=== PATIENT | female | born 2005 | race Caucasian/White ===

== ENCOUNTER 2025-02-26 16:19 | Outpatient (AMB) | payer OTHER, SELFPAY ==
--- NOTE | 2025-02-26 16:20 | A.OFFPC_ITS ---
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 Accompanied by: Self / Same As Patient Allergies No Known Allergies Allergy (Verified 02/26/25 16:21) Medication List - Last Reconciled 02/26/25 by Pierre Landin MD No Known Home Meds Tobacco use date assessed: 02/26/25 Dental Screening Dental Screen Date: 02/26/25 Did you have a dental visit in the last 12 months?: Yes Did you have a dental problem in the last 6 months where you did not have access to dental care?: No Was dental information given to patient?: Patient has dentist HPI HPI Comments History of Present Illness Details History of Present Illness The patient is a 19-year-old female presenting with concerns about hormonal issues, including hair loss, excessive hair growth, menstrual irregularities, and difficulty losing weight. Polycystic Ovarian Syndrome (PCOS): - The patient reports symptoms consisten t with PCOS, including hirsutism, menstrual irregularities, and difficulty losing weight. - The symptoms have been ongoing, with r ecent exacerbation of facial hair growth and irregular menstrual cycles. - There is no known family history of PC OS. Hirsutism: - The patient reports excessive hair hayley wth on the neck and chin, which has worsened over the past 3-1/2 weeks. - This is a new development, as she has always had a mole with a hair on it but not the current extent of hair growth. Menstrual irregularities: - The patient describes her menstrual cy cles as irregular, with varying cycle lengths and a missed period in January. - She has experienced these irregulariti es for an extended period. Obesity: - The patient's BMI is 34.9, indicating class 1 obesity. - She has been actively trying to lose w eight through diet and exercise since May, with limited success. Alopecia: - The patient reports significant hair l oss, which she initially thought was normal but has recently worsened. - She provided photographic evidence of the hair loss. Hip pain: - The patient experiences right hip pain when sitting cross-legged for extended periods. - The pain is described as aching and oc curs after about 20 minutes in this position. Health Maintenance - Encouraged to engage in at least 150 m inutes of moderate-intensity exercise per week. - Referral to a hematologist oncologist for dietary guidance. - Screening for diabetes with hemoglobin A1c. - Screening for thyroid function with TS H. - Screening for lipid profile. - Screening for hepatitis B and C. - HIV screening offered. Review of Systems - Endocrine: Reports irregular menstrual cycles, difficulty losing weight, and excessive hair growth on the face. - Dermatological: Reports significant vasques ir loss on the scalp. - Musculoskeletal: Reports right hip marquise n when sitting cross-legged for extended periods. 10-point ROS reviewed and negative excep t as noted in HPI Allergies Medication History - The patient has not been prescribed an y weight loss medications or treatments. Past Medical History Past Surgical History Family History - No known family history of Polycystic Ovarian Syndrome (PCOS). Current Substance Use Substance Use History Physical Exam General: No apparent distress. Alert and oriented x 3. Head: Normocephalic, atraumatic Eyes: Pupils equal, round, and reactive to light. Extraocular movements intact Throat: Oropharynx clear. No lesions or exudate. ropharynx clear. Mucus membranes moist Neck: Supple. No lymphadenopathy. Thyroid palpation normal. eft anterior descending artery distention. No jugular vein distention. No bruit. Cardiovascular: Regular rate and rhythm. Normal S1 and S2. No murmurs, rubs, or gallops. murmurs, rubs, or gallops Lungs: Clear to auscultation bilaterally. Breath sounds equal bilaterally. No rales, ronchi, or wheezes. Abdomen: Non-tender. Non-distended. Bowel sounds auscultated. No masses or hepatosplenomegaly. Stretch childers present. hepatosplenomegaly. No mass/rebound/guarding Extremities: No clubbing, cyanosis, or edema. Right hip pain noted when sitting crisscross. lubbing, cyanosis, and edema. 2+ pulses Neuro: Cranial nerves II-XII grossly intact. Motor/sensory intact. Reflexes 2+. Gait normal. Skin: Warm, dry, and intact. No rash. Excessive hair growth on chin and neck. Hair loss noted on scalp. Discussion Notes I discussed with the patient the possibility of Polycystic Ovarian Syndrome (PCOS) based on her symptoms of hirsutism, menstrual irregularities, and difficulty losing weight. I explained the need for further diagnostic testing, including blood work and an ultrasound of the ovaries, to confirm the diagnosis. We also discussed potential treatment options, such as hormonal regulation with control, and the importance of lifestyle modifications, including diet and exercise. I recommended follow-up in one to two weeks to review test results and discuss further management. Plan 1. Polycystic Ovarian Syndrome (Pcos) - Plan includes ordering blood tests to check hormone levels, thyroid function, and metabolic panel. - An ultrasound of the ovaries is recomm ended to assess for cysts. - Discussed potential treatment with hor monal regulation using control. - Follow-up appointment scheduled in one to two weeks to review results and dis cuss management. 2. Hirsutism - Addressed as a symptom of PCOS, with m anagement focusing on hormonal regulation. 3. Menstrual Irregularities - Addressed as a symptom of PCOS, with m anagement focusing on hormonal regulation. 4. Obesity - Encouraged lifestyle modifications, in cluding diet and exercise, with a referral to a hematologist oncologist. - Screening for diabetes and lipid profi le to assess metabolic status. 5. Alopecia - Addressed as a symptom of PCOS, with m anagement focusing on hormonal regulation. 6. Hip Pain - Advised to monitor symptoms and report any changes or worsening of pain. Treatment Summary Anticapatory Guidance Patient Instructions - Follow up in one to two weeks to discu ss test results and management plan. - Engage in at least 150 minutes of mode rate-intensity exercise per week. - Consult with a hematologist oncologist for dietar y guidance. - Monitor hip pain and report any change s. Social History - Employment: Works in [employer] at [employer]. - Education: Part-time student studying [employer]. - Exercise: Engages in weightlifting fiv e days a week and active recovery on rest days. [facility] [place] Medical History (Updated 02/26/25 @ 16:56 by Pierre Landin MD) Obesity, class 1 Family History (Updated 02/26/25 @ 16:32 by David Alston MA) Father Back problem Mother Hip problem Back problem Social History (Updated 02/26/25 @ 16:22 by SIMON Perla Housing: House Alcohol intake: current Alcohol intake frequency: does not drink Patient Tobacco Use Status: Never used Tobacco service: No Current occupational status: employed Cognitive needs: No Hearing needs: No Vision needs: No Questionnaire PHQ-9 Over the last 2 weeks, how often have you been bothered by any of the following problems? 1. Little interest or pleasure in doing things: not at all 2. Feeling down, depressed, or hopeless: not at all 3. Trouble falling or staying asleep, or sleeping too much: not at all 4. Feeling tired or having little energy: not at all 5. Poor appetite or overeating: not at all 6. Feeling bad about yourself - or that you are a failure or have let yourself or your family down: not at all 7. Trouble concentrating on things, such as reading the newspaper or watching television: not at all 8. Moving or speaking so slowly that other people could have noticed. Or the opposite - being so fidgety or restless that you have been moving around a lot more than usual: not at all 9. Thoughts that you would be better off or of hurting yourself in some way: not at all Total score: 0 Source: Developed by Drs. Rey Deluca, Rosalind Graves, Matias Bardales and colleagues, with an educational martinez from [employer]. Thrive Questionnaire Date Thrive assessed: 02/26/25 I am a: Patient What is your living situation today?: I have a steady place to live Within the past 12 months, did the food you bought not last and you didn't have the money to get more?: Never true Within the past 12 months, did you worry whether your food would run out before you got money to buy more?: Never true Do you have trouble paying for medicines?: No Do you have trouble getting transportation to medical appointments?: No Do you have trouble paying your heating and electricity bill?: No Do you have trouble taking care of your child, family member or friend?: No Do you have trouble with day-to-day activities such as bathing, preparing meals, shopping, managing finances, etc.?: No Are you currently unemployed and looking for a job?: No Are you interested in more education?: No Please select the resources that you would like help with: None Currently or been in a relationship where the following occur: No concerns reported THRIVE Score: 0 AUDIT C Alcohol Use Questionnaire (AUDIT-C) 1. How often do you have a drink containing alcohol?: Never 3. How often do you have six or more drinks on one occasion?: Never Total Score: 0 CHAPITO-7 AMB Questionnaire CHAPITO-7 Date CHAPITO - 7 assessed: 02/26/25 Feeling nervous, anxious, or on edge: 0 = Not at all Not being able to stop or control worryin = Not at all Worrying too much about different things: 0 = Not at all Trouble relaxin = Not at all Being so restless that it is hard to sit still: 0 = Not at all Becoming easily annoyed or irritable: 0 = Not at all Feeling afraid as if something awful might happen: 0 = Not at all Total CHAPITO-7 score (0-4 normal; 5-9 mild; 10-14 moderate; 15-21 severe): 0 Source: Developed by Drs. Rey Deluca, Rosalind Graves, Matias Bardales and colleagues, with an educational martinez from [employer]. Physical exam (Primary Care) Tobacco/Smoking Status: Tobacco use Status Tobacco use date assessed 02/26/25 02/26/25 16:25 Patient Tobacco Use Status Never used Tobacco 02/26/25 16:25 PHQ-9: PHQ-9 Score PHQ-9: Total score 0 02/26/25 16:25 Thrive Assessment: Date of Thrive Assessment Date Thrive assessed 02/26/25 02/26/25 16:25 Currently or been in a relationship where the following occur: No concerns reported Coding Level of Care Code New Pt Level 3 (19143) Diagnoses Regular check-up Z00.00 Routine lab draw Z01.89 Routine screening for STI (sexually transmitted infection) Z11.3 Screening for diabetes mellitus Z13.1 Screening for lipoid disorders Z13.220 Hypertension screen Z13.6 Dietary counseling Z71.3 Exercise counseling Z71.82 Class 2 obesity E66.812 Hirsutism L68.0 Menstrual irregularity N92.6 PCOS (polycystic ovarian syndrome) E28.2 Alopecia L65.9 Right hip pain M25.551 Assessment & Plan Assessment & Plan (1) Regular check-up: Code(s): Z00.00 - Encounter for general adult medical examination without abnormal findings (2) Routine lab draw: Code(s): Z01.89 - Encounter for other specified special examinations (3) Routine screening for STI (sexually transmitted infection): Code(s): Z11.3 - Encounter for screening for infections with a predominantly sexual mode of transmission (4) Screening for diabetes mellitus: Code(s): Z13.1 - Encounter for screening for diabetes mellitus (5) Screening for lipoid disorders: Code(s): Z13.220 - Encounter for screening for lipoid disorders (6) Hypertension screen: Code(s): Z13.6 - Encounter for screening for cardiovascular disorders (7) Dietary counseling: Code(s): Z71.3 - Dietary counseling and surveillance (8) Exercise counseling: Code(s): Z71.82 - Exercise counseling (9) Class 2 obesity: Code(s): E66.812 - Obesity, class 2 (10) Hirsutism: Code(s): L68.0 - Hirsutism (11) Menstrual irregularity: Code(s): N92.6 - Irregular menstruation, unspecified (12) PCOS (polycystic ovarian syndrome): Code(s): E28.2 - Polycystic ovarian syndrome (13) Alopecia: Code(s): L65.9 - Nonscarring hair loss, unspecified (14) Right hip pain: Code(s): M25.551 - Pain in right hip Plan Orders: Orders Comprehensive Met. Panel Today E28.2 - Polycystic ovarian syndrome, L68.0 - Hirsutism, N92.6 - Irregular menstruation, unspecified Hepatitis C Antibody Today E28.2 - Polycystic ovarian syndrome, L68.0 - Hirsutism, N92.6 - Irregular menstruation, unspecified UA CC w/rflx Micro + Cult Today E28.2 - Polycystic ovarian syndrome, L68.0 - Hirsutism, N92.6 - Irregular menstruation, unspecified DHEA Sulfate Today E28.2 - Polycystic ovarian syndrome, L68.0 - Hirsutism, N92.6 - Irregular menstruation, unspecified US pelvic and transvaginal Today E28.2 - Polycystic ovarian syndrome, L68.0 - Hirsutism, N92.6 - Irregular menstruation, unspecified Ferritin Today D50.9 - Iron deficiency anemia, unspecified, E28.2 - Polycystic ovarian syndrome, L68.0 - Hirsutism, N92.6 - Irregular menstruation, unspecified Complete Blood Count Auto Diff Today E28.2 - Polycystic ovarian syndrome, L68.0 - Hirsutism, N92.6 - Irregular menstruation, unspecified HIV Ab/Ag Today E28.2 - Polycystic ovarian syndrome, L68.0 - Hirsutism, N92.6 - Irregular menstruation, unspecified Hepatitis B Surface Antibody Today E28.2 - Polycystic ovarian syndrome, L68.0 - Hirsutism, N92.6 - Irregular menstruation, unspecified Hepatitis B Surface Antigen Today E28.2 - Polycystic ovarian syndrome, L68.0 - Hirsutism, N92.6 - Irregular menstruation, unspecified Lipid Panel Today E28.2 - Polycystic ovarian syndrome, L68.0 - Hirsutism, N92.6 - Irregular menstruation, unspecified Hemoglobin A1c Today E28.2 - Polycystic ovarian syndrome, L68.0 - Hirsutism, N92.6 - Irregular menstruation, unspecified TSH reflex Free T4 Today E28.2 - Polycystic ovarian syndrome, L68.0 - Hirsutism, N92.6 - Irregular menstruation, unspecified Prolactin Today E28.2 - Polycystic ovarian syndrome, L68.0 - Hirsutism, N92.6 - Irregular menstruation, unspecified Testosterone, Free/Total Today E28.2 - Polycystic ovarian syndrome, L68.0 - Hirsutism, N92.6 - Irregular menstruation, unspecified 17 Hydroxyprogesterone Today E28.2 - Polycystic ovarian syndrome, L68.0 - Hirsutism, N92.6 - Irregular menstruation, unspecified IRON PROFILE Today D50.9 - Iron deficiency anemia, unspecified, E28.2 - Polycystic ovarian syndrome, L68.0 - Hirsutism, N92.6 - Irregular menstruation, unspecified Referrals Nutrition/Dietitian Referral E66.811 - Obesity, class 1
[2025-02-26 16:32] VITALS: BP 108/72; PULSE 79; RESP 16; TEMP 36.4; O2SAT 98; BMI 34.9
--- OUTSIDE RECORDS SUMMARY | 2025-02-26 18:49 | XMS_ITS | Clinical Summary ---
Author Organization [facility] Address [address] [place] [address] Phone Care Team Providers Care Market Maker Name Role Phone Unavailable Primary Care Provider Unavailabl e Allergies Active Allergy Reactions Criticality Noted Date Comments Dust Mite Extract Medications alclomethasone 0.05 % creamIndication s:Sebopsoriasis APPLY TO BEHIND EARS TWO TIMES A DAY NEEDED 2 Active ketoconazole 2 % shampooIndicati ons:Sebopsorias is APPLY TO SCALP EVERY OTHER DAY , LEAVE ON 5 MINUTES THEN WASH OFF 2 Active Denta 5000 Plus 1.1 % creamIndication s:Sebopsoriasis 1 Active triamcinolone 0.1 % lotionIndicatio ns:Sebopsoriasi s APPLY TO SCALP TWICE A DAY NEEDED FOR FLARES 2 Active loratadine 10 MG tabletIndicatio ns:Seasonal allergic rhinitis due to pollen TAKE 1 TABLET BY MOUTH EVERY DAY 90 tablet 3 3 Active Additional Information Patient not taking.Reported on 07/07/2024 Active Problems Problem Noted Date Diagnosed Date Allergic rhinitis 10/04/2018 Overview (11/07/2020): claritin with sx started 11/01/20. Assessment & Plan (02/03/2022 2:29 PM EDT): Flares spring and winter. 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 Assessment & Plan (07/07/2024 2:51 PM EST): Occasional flares still. Followed by derm. Has appt in July but does not take some of the meds due to expense. Sometimes up itching at night due to it. Will take daily zyrtec or benadryl at night as needed to help with itching. In the mean time can us Eucerin or other emollients daily. Assessment & Plan (02/03/2022 2:29 PM EDT): Followed by dermatology -Will continue to monitor and support BMI (body mass index), pediatric, 95-99% for age 0410/04/2018 Overview (02/03/2022): Reviewed healthy diet and exercise patterns, and praised recent intended 4lb weight loss Resolved Problems Problem Noted Date Diagnosed Date Resolved Date Constipation 10/04/2018 10/04/2018 Eczema 10/04/2018 10/04/2018 Immunizations Immunization Administration Dates Next Due DTaP 12/10/2008, 6,05/08/2004,03/13,01/03/2004 H1N1 05/14/2009 HPV Vaccine 9 Valent 09/29/2016,11/07/2015,08/27 Hep A, ped/adol 09/30/2017,09/29/2016 Hep B, ped/adol 05/08/2004,2003,2003 Hib (PRP-T) 01/20/2006, 4,03/13/2004,01/02 IPV 12/10/2008, 4,03/13/2004,01/02 Influenza, injectable, quadrivalent 10/2012,03/01/2012,03/12/2010,05/08 Influenza, injectable, quadr ivalent, preservative free 04/18/2020,04/02/2018,03/20/2017,03/21,04/05/2014 MMR 12/10/2008,12/18/2004 Meningococcal B Bexsero 07/07/2024 Meningococcal Conj (Menactra) MCV4P 11/07/2020,0 08/28/2015 Pneumococcal Conjugate 12/18/2004,2003,03/13/2004,01/02 Tdap 08/28/2015 Varicella 12/10/2008,12/18/2004 Family History Medical History Relation Name Comments No Known Problems Father Heart disease (Premature) Maternal Grandfather Mental illness Maternal Grandfather Diabetes Maternal Grandmother Clotting disorder Mother No Known Problems Paternal Grandfather No Known Problems Paternal Grandmother Relation Name Status Comments Father Alive Healthy age: 39 Maternal Grandfather [place] x2 a ge: 66 diagnosed with NONPSYCHOT BRAIN SYN NOS Maternal Grandmother Alive DM age: 56 diagnosed with DMII WO CMP NT ST UNCNTR Mother Alive Healthy age: 32 Other Alive Siblings: costa r 2001 hx of kidney problems, 2003 healthy brother 2006 tonsilectomy and PE tubes Paternal Grandfather Alive Healthy age: 73 Paternal Grandmother Alive age: 62 Social History Tobacco Use Types Packs/Day Years Used Date Smoking Tobacco: Never Smokeless Tobacco: Never Tobacco Cessation:Counseling Given: Not Answered Alcohol Use Standard Drinks/Week Comments Never 0 (1 standard drink = 0.6 oz pur e alcohol) Hunger/Food Answer Date Recorded In the last 12 months, did y ou or your family ever eat less than you felt you should because there wasn't enough money for food? No 07/07/2024 Stable Housing Answer Date Recorded Are you worried that in the next 2 months you may not have stable housing? No 07/07/2024 Transportation Concerns Answer Date Rec orded In the last 12 months, have you or your family ever had to go without healthcare because you didn't have a way to get there? No 07/07/2024 Hazards in Home Answer Date Recorded Think about the place you li ve. Do you have problems with any of the following? Pests (mice or roaches), mold, no/not working smoke detectors, water leaks, no window guards. No 2024 Financing Utilities Answer Date Recorde d In the last 12 months, has t he electric, gas, oil, or water company threatened to shut off your services in your home? No 07/07/2024 Safety at Home Answer Date Recorded Are you or your family worried about feeling saf e in your home? No 07/07/2024 Outside Support Answer Date Recorded Do you feel that you need mo re support from other people or programs to help you care for yourself or your family? No 07/07/2024 Understanding Health Concerns Answer Da te Recorded Do you need help understandi ng your or your child's healthcare needs (diagnosis, medications, plan, etc.)? No 07/07/2024 Financing Health Concerns Answer Date R ecorded In the last 12 months, was t here a time when your child needed to see a doctor or get medications or supplies but could not because of cost? No 07/07/2024 Missing School or Work Answer Date Javan rded Did you or your child miss s chool or work because of a health problem that could have been avoided? No 07/07/2024 Child Education Answer Date Recorded Do you have concerns about y our/your child's learning or behavior in school, preschool, or daycare? No 07/07/2024 Comments Unknown Sex and Gender Information Value Date Recorded Sex Assigned at Female 07/07/2024 2:57 PM EST Legal Sex Female 6:27 PM EDT Gender Identity Female 07/07/2024 2:57 PM EST Sexual Orientation Straight 10/05/2019 11 :16 AM EDT Last Filed Vital Signs Vital Sign Reading Time Taken Comments Blood Pressure 114/78 07/07/2024 2:34 PM EST Pulse - - Temperature 36.6 C (97.8 F) 07/03/2024 1:34 PM EST Respiratory Rate - - Oxygen Saturation - - Inhaled Oxygen Concentration - - Weight 96.8 kg (213 lb 6.4 oz) 07/07/2024 2:34 P M EST Height 161.3 cm (5' 3.5 ) 07/07/2024 2:34 PM EST Body Mass Index 37.21 07/07/2024 2:34 PM EST Plan of Treatment Health Maintenance Due Date Last Done Comments Men B Vaccine (2 of 2 - Bexs ero SCDM 2-dose series) 01/04/2025 07/07/2024 Influenza Vaccines (#1) 2025 04/18/20 20, 04/02/2018, 03/20/2017, Additional history exists COVID-19 Vaccine ( - 2024-2 6 season) 2025 03/24/2021, 03/03/2021 DTaP,Tdap,and Td Vaccines (7 - Td or Tdap) 08/27/2025 08/28/2015, 12/10/2008, 01/20/2006, Additional history exists Hepatitis B Vaccines Completed 05/08/2004, 2003, 2003 Pneumococcal Vaccine Completed 12/18/2004, 05/08/2004, 03/13/2004, Additional history exists HIB Vaccines Completed 01/20/2006, 04/21, 03/13/2004, Additional history exists IPV Vaccines Completed 12/10/2008, 04/21, 03/13/2004, Additional history exists MMR Vaccines Completed 12/10/2008, 12/18/2004 Varicella Vaccines Completed 12/10/2008, 12/18/2004 HPV Vaccines Completed 09/29/2016, 10/19, 08/28/2015 Hepatitis A Vaccines Completed 09/30/2017, 09/30/19 17 Meningococcal Vaccine Completed 11/07/2020, 016 Procedures * Due to [facility] law, this organization might not be sharing sensitive test results. Procedure Name Priority Date/Time Associated Diagnosis Comments CHLAMYDIA AND GONORRHEA, AMPLIFIED Routine 07/07/2024 3:48 PM EST Encounter for screening examination for sexually transmitted disease from Last 3 Months or Most Recently Relevant to Health Maintenance Results * Due to [facility] law, this organization might not be sharing sensitive test results. * Chlamydia and Gonorrhoea, Amplified (07/07/2024 3:48 PM EST) C trach LAURYN Negative Negative [facility] N gonorrhoeae LAURYN Negative Negative [facility] Urine (Urine) 07/07/2024 3:4 8 PM EST 07/07/2024 Comment:Urine Narrative [facility] - 07/11/2024 12:05 AM EST Performed at: [address] - [facility] [address], [address], [place], [place] [id number] Learning Developer: Maihn Kam MD, Phone: [phone] Yvette [place] [employer] [facility] MICROBIOLOGY - GENERAL O RDERABLES Final Result [facility] [address] [place] [address] from Last 3 Months or Most Recently Relevant to Health Maintenance Insurance [employer] EPO OPEN ACCESS [employer] EPO OPEN ACCESS
--- OUTSIDE RECORDS SUMMARY | 2025-02-26 18:49 | XMS_ITS | Encounter Summary ---
Author Organization [facility] Address [address] [place] [address] Phone Care Team Providers Care Sample Tester Name Role Phone Jena Parish MD Primary Care Provider [phone] Encounter Details Date Type Department Care Team ([facility] Contact Info) Description 11/07/2017 [facility]counter [facility] [address] [address] Miguel Diez MD Social History Tobacco Use Types Packs/Day Years Used Date Smoking Tobacco: Never Assessed Comments Unknown Sex and Gender Information Value Date Recorded Sex Assigned at Female 07/07/2024 2:57 PM EST Legal Sex Female 6:27 PM EDT Gender Identity Female 07/07/2024 2:57 PM EST Sexual Orientation Straight 10/05/2019 11 :16 AM EDT documented as of this encounter Plan of Treatment Not on file documented as of this encounter Visit Diagnoses Not on filedocumented in this encounter Care Teams Sample Tester Relationship Specialty Start Date End Date Jena Parish MD [address] [place] [id number] PCP - General Pediatrics 07/20/22 11/05/24 documented as of this encounter
== END 2025-02-26 17:00 | disposition home or self-care (01) ==
LOC: HO.HMCFMS 16:19
PROVIDERS: PCP Pediatrics; Visit Provider Student in an Organized Health Care Education/Training Program
DX: L68.0 Hirsutism (principal); N92.6 Irregular menstruation, unspecified; E28.2 Polycystic ovarian syndrome; Z01.89 Encounter for other specified special examinations; Z11.3 Encounter for screening for infections with a predominantly sexual mode of transmission; Z13.1 Encounter for screening for diabetes mellitus; Z13.220 Encounter for screening for lipoid disorders; Z13.6 Encounter for screening for cardiovascular disorders; Z71.3 Dietary counseling and surveillance; Z71.82 Exercise counseling; E66.812 Obesity, class 2; L65.9 Nonscarring hair loss, unspecified; M25.551 Pain in right hip

== ENCOUNTER → 2025-02-26 16:19 | Outpatient (BNVA) | payer OTHER, SELFPAY | PROVIDERS: PCP Pediatrics; Visit Provider Student in an Organized Health Care Education/Training Program | DX: Z13.31 Encounter for screening for depression (principal); Z13.39 Encounter for screening examination for other mental health and behavioral disorders | CPT/HCPCS: 96127 ==

== ENCOUNTER 2025-02-28 16:13 | Outpatient (REF) | payer OTHER, SELFPAY ==
[2025-02-28 18:15] LABS: MANUAL DIFF FLAG NO
--- OUTSIDE RECORDS SUMMARY | 2025-02-28 18:38 | XMS_ITS | Encounter Summary ---
Author Organization [facility] Address [address] [place] [address] Phone Care Team Providers Care Graduate Teaching Associate Name Role Phone Unavailable Primary Care Provider Unavailabl e Reason for Visit * Reason Onset Date Comments Error 02/27/2025 Encounter Details Date Type Department Care Team (Late st Contact Info) Description 02/27/2025 Erroneous Telephone [facility]counter [facility] [address] [address] [place] [address] [place] [address] Social History Tobacco Use Types Packs/Day Years Used Date Smoking Tobacco: Never Smokeless Tobacco: Never Alcohol Use Standard Drinks/Week Comments Never 0 [...] AM EDT documented as of this encounter Miscellaneous Notes * Telephone Encounter - Adenike Rich [place] - 02/27/2025 10:21 AM EDT error documented in this encounter Plan of Treatment Not on file documented as of this encounter Visit Diagnoses Not on filedocumented in this encounter
--- OUTSIDE RECORDS SUMMARY | 2025-02-28 18:38 | XMS_ITS | Encounter Summary ---
Author Organization [facility] Address [address] [place] [address] Phone Care Team Providers Care Speech Lang Path Name Role Phone Unavailable Primary Care Provider Unavailabl e Reason for Visit * Reason Onset Date Comments Release of Records 02/27/2025 Encounter Details Date Type Department Care Team (Late st Contact Info) Description 02/27/2025 Telephone [facility] [address] [address] [place], [place] [address] [place] [address] Release of Records Social History Tobacco Use Types Packs/Day Years [...] Encounter - Adenike Rich [place] - 02/27/2025 8:16 AM EDT Release of records [place] [address] Phone- [phone] Records printed and mailed. Release scanned into media. documented in this encounter Plan of Treatment Not on file documented as of this encounter Visit Diagnoses Not on filedocumented in this encounter
--- OUTSIDE RECORDS SUMMARY | 2025-02-28 18:38 | XMS_ITS | Encounter Summary ---
Author Organization [facility] Address [address] [place] [address] Phone Care Team Providers Care Data Modeling Specialist Name Role Phone Jena Parish MD Primary Care Provider [phone] Encounter Details Date Type Department Care Team ([facility] Contact Info) Description 11/07/2017 [facility]counter [facility] [address] [address] Miguel Diez MD Social History Tobacco Use [...] on filedocumented in this encounter Care Teams Data Modeling Specialist Relationship Specialty Start Date End Date Jena Parish MD [address] [place] [address] PCP - General Pediatrics 07/20/22 11/05/24 documented as of this encounter
--- OUTSIDE RECORDS SUMMARY | 2025-02-28 18:38 | XMS_ITS | Clinical Summary ---
Author Organization [facility] Address [address] [place] [address] Phone Care Team Providers Care Segment Block Layer Name Role Phone Unavailable Primary Care Provider [...] Date Constipation 10/04/2018 10/04/2018 Eczema 10/04/2018 10/04/2018 Encounters Date Type Department Care Team Description 02/27/2025 Erroneous Telephone Encounter [facility] [address] [address] [place]enike [place] 02/27/2025 Telephone [facility] [address] [address] Adenike [place] Release of Records from Last 3 Months Immunizations Immunization Administration Dates Next Due DTaP [...] Father Alive Healthy age: 39 Maternal Grandfather [place] x2 a ge: 66 diagnosed with NONPSYCHOT BRAIN SYN NOS Maternal Grandmother Alive DM age: 56 diagnosed with DMII WO CMP NT ST UNCNTR Mother Alive Healthy age: 32 Other Alive Siblings: siste r 2002 hx of kidney problems, 2004 healthy brother 2007 tonsilectomy and PE tubes Paternal Grandfather Alive [...] 04/02/2018, 03/20/2017, Additional history exists COVID-19 Vaccine (3 - 2024-2 6 season) 2025 03/24/2021, 03/03/2021 [...] Completed 11/07/2020, 016 Procedures * Due to [place] [employer] law, this organization might not be sharing sensitive test results. Procedure Name Priority Date/Time Associated Diagnosis Comments CHLAMYDIA AND GONORRHEA, AMPLIFIED Routine 07/07/2024 3:48 PM EST Encounter for screening examination for sexually transmitted disease from Last 3 Months or Most Recently Relevant to Health Maintenance Results * Due to [place] [employer] law, this organization might not be sharing sensitive test results. * Chlamydia and Gonorrhoea, Amplified (07/07/2024 3:48 PM EST) C trach LAURYN Negative Negative [facility] N gonorrhoeae LAURYN Negative Negative [facility] Urine (Urine) 07/07/2024 3:4 8 PM EST 07/07/2024 Comment:Urine Narrative [facility] - 07/11/2024 12:05 AM EST Performed at: - [facility] [address], [address], [place], [place] [id number] Form Carpenter: Mahin Kam MD, Phone: [phone] Yvette Kenny NP LAB MICROBIOLOGY - GENERAL O RDERABLES Final Result Performing Organization Address City/State/[facility] Co de Phone Number [facility] [address] [place] [address] from Last 3 Months or Most Recently Relevant to Health Maintenance Insurance [employer] E[employer] OPEN ACCESS [employer] E[employer] OPEN ACCESS
[2025-02-28 18:39] LABS: Appearance Urine Clear; Glucose Urine UA Negative (Negative); Hematocrit 36.9 % (37.0-47.0); Hemoglobin 12.8 g/dl (12.0-16.0); Imm Gran Pct Auto 0.2 % (0.0-0.4); Mean Corpuscular HGB Conc 34.7 g/dl (31.0-35.0); Mean Corpuscular Hemoglobin 27.9 pg (27.0-33.0); Mean Corpuscular Volume 80.4 fL (80.0-98.0); NRBC Pct Auto 0.0 /100WBC (0.0-0.2); PH 6.5 (5.0-9.0); Platelet Count 238 X10*3/uL (160-400); Red Blood Count 4.59 X10*6/uL (4.20-5.50); Specific Gravity - Urine 1.015 (1.005-1.025); UMIC TRIGGER UACC YES; White Blood Count 5.8 X10*3/uL (4.8-10.8)
[2025-02-28 18:40] LABS: Imm Gran Abs Auto 0.01 X10*3/uL (0.00-0.03); Lymphocytes Absolute Auto 1.8 X10*3/uL (1.2-4.9); NRBC Abs Auto 0.000 X10*3/uL (0.0-0.012)
[2025-02-28 18:54] LABS: Alanine Aminotransferase 23 U/L (0-31); Albumin Level 4.8 g/dL (3.5-5.0); Alkaline Phosphatase 83 U/L (39-117); Anion Gap 13 (12-20); Aspartate Amino Transferase 27 U/L (5-31); Blood Urea Nitrogen 8 mg/dL (9-16); Calcium 9.2 mg/dL (8.4-10.2); Carbon Dioxide 24 mmol/L (22-29); Chloride 105 mmol/L (96-108); Cholesterol 160 mg/dL (<200); Estimated Glomerular Filt Rate > 60; HDL Cholesterol 43 mg/dL (>40); Iron 98 mcg/dL (30-160); Percent Iron Saturation 27 % (15-50); Potassium 4.2 mmol/L (3.3-5.1); Sodium 138 mmol/L (135-145); Total Iron Binding Capacity 367 mcg/dL (228-428); Total Protein 7.4 g/dL (6.5-8.0); Triglycerides 100 mg/dL (<150); Unsaturated Iron Binding 269 ug/dL
[2025-02-28 19:01] LABS: UACC Culture Trigger YES
[2025-02-28 19:09] LABS: Ferritin 29 ng/mL (10-122)
[2025-03-01 07:31] LABS: Hemoglobin A1C 107.4604 umol/L; Total Hemoglobin (HGBA1C) 3347.6136 umol/L
[2025-03-01 08:30] LABS: HBS Num1 0.00 mIU/mL (0-7.99); HBsAGNum1 0.48 S/CO (0.00-0.99); HIV Num 1 0.07 S/CO (0.00-0.99); Hepatitis B Surface Antigen Negative (Negative); ~HepC Num1 0.19 S/CO (0.00-0.79); ~Hepatitis B Surface Antibody NONREACTIVE (Nonreactive); ~Hepatitis C Antibody Nonreactive (Nonreactive)
[2025-03-05 13:53] LABS: Testosterone, Free 2.1 pg/mL (0.1-6.4)
== END 2025-02-28 16:14 | disposition home or self-care (01) ==
LOC: HO.HKASLDS 16:13
PROVIDERS: Visit Provider Student in an Organized Health Care Education/Training Program
DX: Z11.4 Encounter for screening for human immunodeficiency virus [HIV] (principal); E28.2 Polycystic ovarian syndrome; D50.9 Iron deficiency anemia, unspecified; N92.6 Irregular menstruation, unspecified; L68.0 Hirsutism; Z13.6 Encounter for screening for cardiovascular disorders; Z13.1 Encounter for screening for diabetes mellitus
CPT/HCPCS: 36415; 80053; 80061; 81001; 82627; 82728; 83036; 83498; 83540; 84146; 84402; 84403; 84443; 85025; 86706; 86803; 87086; 87147; 87340; 87389

== ENCOUNTER 2025-03-05 15:57 | Outpatient (AMB) | payer OTHER, SELFPAY ==
[2025-03-05 16:02] VITALS: BP 110/84; PULSE 82; RESP 16; TEMP 36.4; O2SAT 100; BMI 35.1
--- NOTE | 2025-03-05 16:02 | A.OFFPC_ITS ---
Vital Signs 03/05/25 16:02 Height 5 ft 3.78 in Weight 203 lb BMI 35.1 BP 110/84 Blood Pressure Location Rt brachial Position Sitting Respiration 16 Pulse 82 Pulse Source Pulse Oximeter Temp 97.6 F Temp Source Oral Pulse Oximetry (%) 100 Oxygen Delivery Method Room Air Intake Visit Reasons: 1 week follow up Intake Note: pt is here for hormone imbalance, losing hair, trouble with weigh lost and her facial hairs are growing fast. 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 Polycystic Ovary Syndrome (PCOS): - Symptomatology includes hirsutism, irr egular menstrual cycles, difficulty with weight loss, and hair loss. - Laboratory findings include normal usman tosterone, prolactin, and TSH but elevated DHEA sulfate. Migraine: - Treated headaches are related to drast ic temperature changes and result in significant disturbances, with sleep impacted due to headache-related pressure. Health Maintenance - Discussed initiating control and spironolactone to manage PCOS symptoms and metformin for weight loss. - Discussed lifestyle modifications for weight management including exercise and dietary changes. Review of Systems - Endocrine: Reports irregular menstrual cycles and difficulty losing weight. - Neurological: Reports headaches with s pecific triggers. - Dermatological: Reports hirsutism and hair loss. - Psychosocial: Reports stress related t o persistent symptoms. 10-point ROS reviewed and negative excep t as noted in HPI Social History - Discussed future plans regarding famil y, specifically that the patient does not plan on having children currently. - Reports active attempts at weight loss , including dietary variations and exercise. - Reports no current use of the patient portal. Physical Exam General: No apparent distress. Alert and oriented x 3. Head: Normocephalic, atraumatic Eyes: Pupils equal, round, and reactive to light. Extraocular movements intact Throat: Oropharynx clear. Mucus membranes moist Neck: Supple. No left anterior descending artery distention. No jugular vein distention. No bruit. Cardiovascular: Regular rate and rhythm. Normal S1 and S2. No murmurs, rubs, or gallops Lungs: Clear to auscultation bilaterally. Breath sounds equal bilaterally. No rales, ronchi, or wheezes. Abdomen: Non-tender. Non-distended. Bowel sounds auscultated. No hepatosplenomegaly. No mass/rebound/guarding Extremities: No clubbing, cyanosis, and edema. 2+ pulses Neuro: Central nerves II-XII grossly intact. Motor/sensory intact. Reflexes 2. Gait normal Skin: Warm, dry, and intact. No rash. exsessive facial hair Discussion Notes I discussed the diagnosis of Polycystic Ovary Syndrome with the patient and proposed starting control and spironolactone to manage symptoms like hirsutism and irregular menstrual cycles. Benefits and potential risks were thoroughly reviewed, including the potential metabolic benefits of metformin for weight loss. For migraine management, I proposed starting ibuprofen for relief and discussed its dosage. Future evaluations may include further headache management if ibuprofen is insufficient. The patient agreed to all proposed management steps, with follow-up planned in a month to assess symptom changes and potential medication adjustments. Plan 1. Polycystic ovarian syndrome E28 .2 - Begin control and spironolactone for symptom management. - Initiate metformin to assist with weig ht loss efforts. 2. Migraine, unspecified, not intractabl e, without status migrainosus G43.909 - Use ibuprofen for headache management as discussed. Patient Instructions - Start taking your prescribed con trol and spironolactone every day. - Take metformin once daily as per instr uctions. - Use ibuprofen as needed for your heada ches, up to 800 mg every 8 hours. - Monitor for any changes or side effect s and reach out through the patient portal if needed. - Follow up in a month or sooner if symp toms worsen. [facility] Medical History (Updated 03/05/25 @ 16:26 by Pierre Landin MD) Polycystic ovary syndrome Obesity, class 1 Family History Father Back problem Mother Hip problem Back problem Social History (Updated 02/26/25 @ 16:32 by SIMON Perla Housing: House Alcohol intake: current Alcohol intake frequency: does not drink Patient Tobacco Use Status: Never used Tobacco service: No Current occupational status: employed Cognitive needs: No Hearing needs: No Vision needs: No Questionnaire PHQ-9 Over the last 2 weeks, how often have you been bothered by any of the following problems? 1. Little interest or pleasure in doing things: not at all 2. Feeling down, depressed, or hopeless: not at all 3. Trouble falling or staying asleep, or sleeping too much: several days 4. Feeling tired or having little energy: more than half the days 5. Poor appetite or overeating: several days 6. Feeling bad about yourself - or that you are a failure or have let yourself or your family down: not at all 7. Trouble concentrating on things, such as reading the newspaper or watching television: not at all 8. Moving or speaking so slowly that other people could have noticed. Or the opposite - being so fidgety or restless that you have been moving around a lot more than usual: not at all 9. Thoughts that you would be better off or of hurting yourself in some way: not at all Total score: 4 Source: Developed by Drs. Rey Deluca, Rosalind Graves, Matias Bardales and colleagues, with an educational martinez from [employer]. Thrive Questionnaire Date Thrive assessed: 03/03/25 I am a: Patient What is your living situation today?: I have a steady place to live Within the past 12 months, did the food you bought not last and you didn't have the money to get more?: Never true Within the past 12 months, did you worry whether your food would run out before you got money to buy more?: Never true Do you have trouble paying for medicines?: No Do you have trouble getting transportation to medical appointments?: No Do you have trouble paying your heating and electricity bill?: No Do you have trouble taking care of your child, family member or friend?: No Do you have trouble with day-to-day activities such as bathing, preparing meals, shopping, managing finances, etc.?: No Are you currently unemployed and looking for a job?: No Are you interested in more education?: Yes Please select the resources that you would like help with: None Currently or been in a relationship where the following occur: No concerns reported THRIVE Score: 0 AUDIT C Alcohol Use Questionnaire (AUDIT-C) 1. How often do you have a drink containing alcohol?: Monthly or less 2. How many drinks containing alcohol do you have on a typical day when you are drinking?: 1 or 2 3. How often do you have six or more drinks on one occasion?: Never Total Score: 1 CHAPITO-7 AMB Questionnaire CHAPITO-7 Date CHAPITO - 7 assessed: 02/26/25 Feeling nervous, anxious, or on edge: 1 = Several days Not being able to stop or control worryin = Several days Worrying too much about different things: 1 = Several days Trouble relaxin = Several days Being so restless that it is hard to sit still: 0 = Not at all Becoming easily annoyed or irritable: 0 = Not at all Feeling afraid as if something awful might happen: 0 = Not at all Total CHAPITO-7 score (0-4 normal; 5-9 mild; 10-14 moderate; 15-21 severe): 4 Source: Developed by Drs. Rey Deluca, Rosalind Graves, Matias Bardales and colleagues, with an educational martinez from [employer]. Physical exam (Primary Care) Tobacco/Smoking Status: Tobacco use Status Tobacco use date assessed 02/26/25 02/26/25 16:59 Patient Tobacco Use Status Never used Tobacco 02/26/25 16:59 Thrive Assessment: Date of Thrive Assessment Date Thrive assessed 03/03/25 03/03/25 07:06 Currently or been in a relationship where the following occur: No concerns reported Coding Level of Care Code Est Pt Level 3 (47593) Diagnoses Polycystic ovary syndrome E28.2 Obesity, class 1 E66.811 Encounter to discuss test results Z71.2 Elevated DHEA R79.89 Elevated hematocrit R71.8 Assessment & Plan Assessment & Plan (1) Polycystic ovary syndrome: Code(s): E28.2 - Polycystic ovarian syndrome Category: Medical (2) Obesity, class 1: Code(s): E66.811 - Obesity, class 1 Category: Medical (3) Encounter to discuss test results: Code(s): Z71.2 - Person consulting for explanation of examination or test findings (4) Polycystic ovary syndrome: Code(s): E28.2 - Polycystic ovarian syndrome (5) Elevated DHEA: Code(s): R79.89 - Other specified abnormal findings of blood chemistry (6) Elevated hematocrit: Code(s): R71.8 - Other abnormality of red blood cells Plan Medications: New spironolactone 50 mg PO DAILY 30 tabs 0RF norgestimate-ethinyl estradiol 0.18/0.215/0.25 mg-0.035mg (28) 1 tab PO DAILY 84 tabs 0RF metformin 500 mg PO DAILY 30 tabs 2RF ibuprofen 600 mg PO Q8H PRN 30 tabs 0RF pain
--- OUTSIDE RECORDS SUMMARY | 2025-03-05 21:13 | XMS_ITS | Clinical Summary ---
Author Organization [facility] Address [address] [place] [address] Phone Care Team Providers Care Marble Worker Name Role Phone Unavailable Primary Care Provider [...] 02/27/2025 Erroneous Telephone Encounter [facility] [address] [address] [place] 02/27/2025 Telephone [facility] [address] [address] [place]ike [place] Release of Records from [...] Father Alive Healthy age: 39 Maternal Grandfather [place] x2 a ge: 66 diagnosed with NONPSYCHOT [...] 09/30/19 17 Meningococcal Vaccine Completed 11/07/2020, 016 Chlamydia and Gonorrhea Screening Completed 025, 10/05/2019 Procedures * Due to [place] [employer] law, this organization might not be sharing sensitive test results. Procedure Name Priority Date/Time Associated Diagnosis Comments CHLAMYDIA AND GONORRHEA, AMPLIFIED Routine 07/07/2024 3:48 PM EST Encounter for screening examination for sexually transmitted disease from Last 3 Months or Most Recently Relevant to Health Maintenance Results * Due to [place] [employer] law, this organization might not be sharing sensitive test results. * Chlamydia and Gonorrhoea, Amplified (07/07/2024 3:48 PM EST) C trach LAURYN Negative Negative [facility] N gonorrhoeae LAURYN Negative Negative [facility] Urine (Urine) 07/07/2024 3:4 8 PM EST 07/07/2024 Comment:Urine Narrative [facility] - 07/11/2024 12:05 AM EST Performed at: 01 - [facility] [place] [address], [address], [place], [place] [id number] Office Machine Installer: Mahin Kam MD, Phone: [phone] Yvette Kenny NP LAB MICROBIOLOGY - GENERAL O RDERABLES Final Result Performing Organization Address City/State/[facility] Co de Phone Number [facility] [address] [place] [address] from Last 3 Months or Most Recently Relevant to Health Maintenance Insurance [employer] OPEN ACCESS [employer] OPEN ACCESS
--- OUTSIDE RECORDS SUMMARY | 2025-03-05 21:13 | XMS_ITS | Encounter Summary ---
Author Organization [facility] Address [address] [place] [address] Phone Care Team Providers Care Talent Management Specialist Name Role Phone Jena Parish MD Primary Care Provider [phone] Encounter Details Date Type Department Care Team ([facility] Contact Info) Description 11/07/2017 [facility]counter [facility] [address] [address] Miguel Diez MD Social History Tobacco Use [...] on filedocumented in this encounter Care Teams Talent Management Specialist Relationship Specialty Start Date End Date Jena Parish MD [address] [place] [address] PCP - General Pediatrics 07/20/22 11/05/24 documented as of this encounter
== END 2025-03-05 16:22 | disposition home or self-care (01) ==
LOC: HO.HMCFMS 15:58
PROVIDERS: PCP Student in an Organized Health Care Education/Training Program; Visit Provider Student in an Organized Health Care Education/Training Program
DX: E28.2 Polycystic ovarian syndrome (principal); R79.89 Other specified abnormal findings of blood chemistry; R71.8 Other abnormality of red blood cells; E66.811 Obesity, class 1; Z68.35 Body mass index [BMI] 35.0-35.9, adult; Z71.2 Person consulting for explanation of examination or test findings

== ENCOUNTER 2025-04-17 15:01 | Outpatient (REF) | payer OTHER, SELFPAY ==
--- NOTE | ~2025-04-17 | US_ITS ---
EXAMINATION: US PELVIS, COMPLETE CLINICAL INFORMATION: N92.6 - Irregular menstruation, unspecified COMPARISON: None TECHNIQUE: Transabdominal and transvaginal imaging was performed. FINDINGS: LMP: 04/05/2025 Uterus is anteverted , measuring 6.5 x 2.8 x 3.8 cm. No focal uterine lesion. Endometrial thickness 0.5 cm. Right ovary measures 3.5 x 1.9 x 1.7 cm. Volume 5.9 mL. Left ovary measures 3.2 x 1.9 x 1.2 cm. Volume 4 mL. Vascular flow seen in bilateral ovaries. No free fluid in the cul-de-sac. US/US pelvic and transvaginal IMPRESSION: No significant abnormality demonstrated by ultrasound. Electronically signed by: Anderson Jimenez MD 04/17/2025 05:03 PM EDT
--- OUTSIDE RECORDS SUMMARY | 2025-04-17 19:25 | XMS_ITS | Encounter Summary ---
Author Organization [facility] Address [address] [place] [address] Phone Care Team Providers Care Pulley Maintainer Name Role Phone Jena Parish MD Primary Care Provider [phone] Encounter Details Date Type Department Care Team ([facility] Contact Info) Description 11/07/2017 [facility]counter [facility] [address] [address] Miguel Diez MD Social History Tobacco Use [...] on filedocumented in this encounter Care Teams Pulley Maintainer Relationship Specialty Start Date End Date Jena Parish MD [address] [place] [address] PCP - General Pediatrics 07/20/22 11/05/24 documented as of this encounter
--- OUTSIDE RECORDS SUMMARY | 2025-04-17 19:25 | XMS_ITS | Clinical Summary ---
Author Organization [facility] Address [address] [place] [address] Phone Care Team Providers Care Tankage Supervisor Name Role Phone Unavailable Primary Care Provider [...] 02/27/2025 Erroneous Telephone Encounter [facility] [address] [address] Adenike [place] 02/27/2025 Telephone [facility] [address] [address] [place]ike [place] Release of Records from [...] Father Alive Healthy age: 39 Maternal Grandfather [place] x2 a ge: 66 diagnosed with NONPSYCHOT [...] Completed 025, 10/05/2019 Procedures * Due to [place] [employer] law, this organization might not be sharing sensitive test results. Procedure Name Priority Date/Time Associated Diagnosis Comments CHLAMYDIA AND GONORRHEA, AMPLIFIED Routine 07/07/2024 3:48 PM EST Encounter for screening examination for sexually transmitted disease from Last 3 Months or Most Recently Relevant to Health Maintenance Results * Due to [place] [employer] law, this organization might not be sharing sensitive test results. * Chlamydia and Gonorrhoea, Amplified (07/07/2024 3:48 PM EST) C trach LAURYN Negative Negative [facility] N gonorrhoeae LAURYN Negative Negative [facility] Urine (Urine) 07/07/2024 3:4 8 PM EST 07/07/2024 Comment:Urine Narrative [facility] - 07/11/2024 12:05 AM EST Performed at: 01 - [facility] [place] [address], [address], [place], [place] [id number] Per Diem Physical Therapist: Mahin Kam MD, Phone: [phone] Yvette Kenny NP LAB MICROBIOLOGY - GENERAL O RDERABLES Final Result Performing Organization Address City/State/[facility] Co de Phone Number [facility] [address] [place] [address] from Last 3 Months or Most Recently Relevant to Health Maintenance Insurance [employer] OPEN ACCESS [employer] OPEN ACCESS
== END 2025-04-17 15:02 | disposition home or self-care (01) ==
LOC: HO.US 15:01
PROVIDERS: PCP Student in an Organized Health Care Education/Training Program; Visit Provider Student in an Organized Health Care Education/Training Program
DX: N92.6 Irregular menstruation, unspecified (principal); L68.0 Hirsutism; E28.2 Polycystic ovarian syndrome
CPT/HCPCS: 76830; 76856

== ENCOUNTER → 2025-04-17 15:03 | Outpatient (BNV) | payer OTHER, SELFPAY | PROVIDERS: PCP Student in an Organized Health Care Education/Training Program; Visit Provider Radiology Diagnostic Ultrasound | DX: N92.6 Irregular menstruation, unspecified (principal) | CPT/HCPCS: 76830; 76856 ==

== ENCOUNTER 2025-04-18 10:28 | Outpatient (AMB) | payer OTHER, SELFPAY ==
--- NOTE | 2025-04-18 10:43 | MHC.AMNUTRGE ---
VS Expanded 04/18/25 10:44 04/18/25 10:48 Height 5 ft 4 in 5 ft 4 in Weight 199 lb 11.821 oz 200 lb BMI 34.3 34.3 Intake Visit Reasons: Obesity, class 1 Allergies No Known Allergies Allergy (Verified 02/26/25 16:21) Nutrition Presentation Details: Pt presents for MNT for obesity PCOS Pt reports having 2 meal/d B: ori seeds/hemp seeds/milk ad collage powder/berries and nuts Dinner: steak/chicken/asparagus/rice , water or sodas fried foods: no eating out : 2/wk food frequency milk: 1/d fish : 3/wk fruits: 1/day beverages 60 oz water/d physical activity: walking 30 min , wt 30 minutes BS Monitoring Most Recent Diabetes Results: Cholesterol, (<200) 160 mg/dL 02/28/25 HDL Cholesterol, (>40) 43 mg/dL 02/28/25 Triglycerides, (<150) 100 mg/dL 02/28/25 Creatinine, (0.5-1.4) 0.75 mg/dL 02/28/25 BUN, (9-16) 8 mg/dL L 02/28/25 Sodium, (135-145) 138 mmol/L 02/28/25 Potassium, (3.3-5.1) 4.2 mmol/L 02/28/25 Chloride, (96-108) 105 mmol/L 02/28/25 Carbon Dioxide, (22-29) 24 mmol/L 02/28/25 Calcium, (8.4-10.2) 9.2 mg/dL 02/28/25 AST, (5-31) 27 U/L 02/28/25 ALT, (0-31) 23 U/L 02/28/25 Total Protein, (6.5-8.0) 7.4 g/dL 02/28/25 Albumin, (3.5-5.0) 4.8 g/dL 02/28/25 SPD-Qqnpsjx-Ab.Jeor Equation Height: 5 ft 4 in Weight: 200 lb Resting Metabolic Rate: 1657.96 Calculated Activity Level: Sedentary Calories Needed to Maintain Weight: 1989.55 Diagnosis Nutrition problem #1: overweight/obesity As related to (etiology) #1: diagnosis As evidenced by (sign/symptom) #1: knowledge deficit of diet PFSH Medical History (Updated 03/05/25 @ 16:26 by Pierre Landin MD) Polycystic ovary syndrome Obesity, class 1 Family History Father Back problem Mother Hip problem Back problem Social History Housing: House Alcohol intake: current Alcohol intake frequency: does not drink Patient Tobacco Use Status: Never used Tobacco service: No Current occupational status: employed Cognitive needs: No Hearing needs: No Vision needs: No Assessment & Plan Assessment & Plan (1) Obesity, class 1: Code(s): E66.811 - Obesity, class 1 Category: Medical Plan: current wt: 91 kg ( 04/14 ) est kcal needs as per MSJ: 2000 est protein needs as per 1 g/kg BW: 90 est fluid needs as per 30 ml/kg BW: 2700 Recommended fiber > 12 g /day and gradually increase up to 25-28 g /day or as tolerated Nutrition topics discussed : Reviewed (R), Pt verbalized understanding (V) , not applicable (N/A) R, V, : Healthy Plate Method Concept: R, V, N/A: Carbohydrates: food sources of carbohydrates, relationship of carbohydrates to blood glucose, fatty liver GI health. Recommended total amount of carbohydrates per meals and snack. Differences between simple carbohydrates and complex carbohydrates R, V,: Lean protein foods including vegan , vegetarian sources of protein. Benefits of protein (including but not limited to healing, nutritional value , benefits in weight loss, glucose control R, V, N/A: Fats : Source of fats, benefits of fats. Difference between saturated and unsaturated fats. Saturated fats and its contribution to inflammation R, V, N/A: Fiber: food sources and role of fiber in the diet (including but not limited to its role as a prebiotic, benefits in constipation, role in IBS , role in glucose control and cholesterol level) R, V: Hydration: role of hydration and prevention of dehydration or over hydration. Foods and water content. R, V, N/A: Vitamins and Minerals in foods and supplements R, V, N/A: Interpreting food labels, including serving size, macronutrients, vitamins, minerals, allergens, ingredient list , % daily value Patient Instructions: follow healthy plate method at dinner, measure food portion, starch portion 1 cup cooked Work on reducing sugar add (beverages/snacks) keep a food record Coding Level of Care Code Nutr Indiv Intake (32995) Diagnoses Obesity, class 1 E66.811 Time Spent (min) 30
[2025-04-18 10:44] VITALS: BMI 34.3
--- OUTSIDE RECORDS SUMMARY | 2025-04-18 13:00 | XMS_ITS | Clinical Summary ---
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 Procedure Name Priority Date/Time Associated Diagnosis Comments CHLAMYDIA AND GONORRHEA, AMPLIFIED Routine 07/07/2024 3:48 PM EST Encounter for screening examination for sexually transmitted disease from Last 3 Months or Most Recently Relevant to Health Maintenance Results * Due to [place] [employer] law, this organization might not be sharing sensitive test results. * Chlamydia and Gonorrhoea, Amplified (07/07/2024 3:48 PM EST) C trach LAURYN Negative Negative [facility] N gonorrhoeae LAURYN Negative Negative [facility] Urine (Urine) 07/07/2024 3:4 8 PM EST 07/07/2024 Comment:Urine Narrative [facility] - 07/11/2024 12:05 AM EST Performed at: 01 - [facility] [place] [address], [address], [place], [place] [id number] 3D Modeler: Mahin Kam MD, Phone: [phone] Yvette Kenny NP LAB MICROBIOLOGY - GENERAL O RDERABLES Final Result Performing Organization Address City/State/[facility] Co de Phone Number [facility] [address] [place] [address] from Last 3 Months or Most Recently Relevant to Health Maintenance Insurance [employer] OPEN ACCESS [employer] OPEN ACCESS
--- OUTSIDE RECORDS SUMMARY | 2025-04-18 13:00 | XMS_ITS | Encounter Summary ---
Author Organization [facility] Address [address] [place] [address] Phone Care Team Providers Care Veterinarian Name Role Phone Jena Parish MD Primary Care Provider [phone] Encounter Details Date Type Department Care Team ([facility] Contact Info) Description 11/07/2017 [facility] [address] [address] Miguel Diez MD Social History Tobacco Use [...] on filedocumented in this encounter Care Teams Veterinarian Relationship Specialty Start Date End Date Jena Parish MD [address] [place] [id number] PCP - General Pediatrics 07/20/22 11/05/24 documented as of this encounter
[2025-04-24 21:17] VITALS: BMI 34.3
== END 2025-04-18 11:17 | disposition home or self-care (01) ==
LOC: HO.ENCR 10:28
PROVIDERS: PCP Student in an Organized Health Care Education/Training Program; Visit Provider Dietitian, Registered
DX: E66.811 Obesity, class 1 (principal)

== ENCOUNTER → 2025-04-18 10:28 | Outpatient (BNVA) | payer OTHER, SELFPAY | PROVIDERS: PCP Student in an Organized Health Care Education/Training Program; Visit Provider Dietitian, Registered | DX: E66.811 Obesity, class 1 (principal); Z68.34 Body mass index [BMI] 34.0-34.9, adult | CPT/HCPCS: 97802 ==

== ENCOUNTER 2025-05-23 14:44 | Outpatient (AMB) | payer OTHER, SELFPAY ==
--- NOTE | 2025-05-23 14:52 | MHC.PC.OV ---
Vital Signs 05/23/25 15:09 Height 5 ft 4 in Weight 205 lb BMI 35.2 BP 112/57 L Blood Pressure Location Rt brachial Position Sitting Respiration 16 Pulse 76 Pulse Source Pulse Oximeter Temp 98.2 F Temp Source Oral Pulse Oximetry (%) 97 Oxygen Delivery Method Room Air Intake Visit Reasons: Reschedule 1 month follow up Intake Note: Patient presents to appt for follow up, also experiencing bilat shoulder, upper back and bilat neck pain Mule Spinner Required: No Accompanied by: Self / Same As Patient Allergies No Known Allergies Allergy (Verified 05/23/25 15:08) Tobacco use date assessed: 02/26/25 Dental Screening Dental Screen Date: 02/26/25 HPI HPI Comments History of Present Illness Details History of Present Illness The patient is a 19 year old individual presenting for medication management and to discuss a possible breast reduction. Irregular Menstruation: The patient is on a medication regimen that includes control, metformin, ibuprofen, and spironolactone. 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 The patient reports feeling more energized with the current treatment. Macromastia: The patient reports having a 38DD breast size since freshman year of high school ([id number]) and experiences associated chronic neck, back, and shoulder pain. The patient's large breast size interferes with exercise, getting in the way and preventing proper form, and necessitates wearing two sports bras for extra support. Standard bras must either be worn very tight, causing them to dig into the shoulders, or loose, which provides inadequate support. Medications: - control, for menstrual cycle regulation. - Metformin, indication not specified. - Ibuprofen, indication not specified. - Spironolactone, indication not specified. Social History: - Exercise: The patient engages in weightlifting three times per week. - Health tracking: The patient uses an marissa and a scale to track progress. Past Medical History - History of irregular menses. - Macromastia (38DD) since adolescence ([id number]). Health Maintenance - The patient engages in regular exercise, specifically weightlifting three times a week. - The patient utilizes an marissa and scale for health tracking. [facility] Medical History (Updated 05/26/25 @ 11:53 by Pierre Landin MD) Chronic back pain Menstrual irregularity Macromastia Polycystic ovary syndrome Obesity, class 1 Family History Father Back problem Mother Hip problem Back problem Social History (Updated 05/23/25 @ 15:08 by Arturo Perez CMA) Housing: House Alcohol intake: current Alcohol intake frequency: does not drink Patient Tobacco Use Status: Never used Tobacco e-Cigarette/Vaping Use: Never Used service: No Current occupational status: employed Cognitive needs: No Hearing needs: No Vision needs: No Questionnaire PHQ-9 Over the last 2 weeks, how often have you been bothered by any of the following problems? 1. Little interest or pleasure in doing things: not at all 2. Feeling down, depressed, or hopeless: not at all 3. Trouble falling or staying asleep, or sleeping too much: several days 4. Feeling tired or having little energy: more than half the days 5. Poor appetite or overeating: several days 6. Feeling bad about yourself - or that you are a failure or have let yourself or your family down: not at all 7. Trouble concentrating on things, such as reading the newspaper or watching television: not at all 8. Moving or speaking so slowly that other people could have noticed. Or the opposite - being so fidgety or restless that you have been moving around a lot more than usual: not at all 9. Thoughts that you would be better off or of hurting yourself in some way: not at all Total score: 4 Depression Screening Interpretation: Negative Depression Screening Done: Yes 77432 - PHQ-9 Billing: Yes Source: Developed by Drs. Rey Deluca, Rosalind Graves, Matias Bardales and colleagues, with an educational martinez from [employer]. Thrive Questionnaire Date Thrive assessed: 05/23/25 I am a: Patient What is your living situation today?: I have a steady place to live Within the past 12 months, did the food you bought not last and you didn't have the money to get more?: Never true Within the past 12 months, did you worry whether your food would run out before you got money to buy more?: Never true Do you have trouble paying for medicines?: No Do you have trouble getting transportation to medical appointments?: No Do you have trouble paying your heating and electricity bill?: No Do you have trouble taking care of your child, family member or friend?: No Do you have trouble with day-to-day activities such as bathing, preparing meals, shopping, managing finances, etc.?: No Are you currently unemployed and looking for a job?: No Are you interested in more education?: Yes Please select the resources that you would like help with: None Currently or been in a relationship where the following occur: No concerns reported THRIVE Score: 0 AUDIT C Alcohol Use Questionnaire (AUDIT-C) 1. How often do you have a drink containing alcohol?: Monthly or less 2. How many drinks containing alcohol do you have on a typical day when you are drinking?: 1 or 2 3. How often do you have six or more drinks on one occasion?: Never Total Score: 1 CHAPITO-7 AMB Questionnaire CHAPITO-7 Date CHAPITO - 7 assessed: 05/23/25 Feeling nervous, anxious, or on edge: 1 = Several days Not being able to stop or control worryin = Several days Worrying too much about different things: 1 = Several days Trouble relaxin = Several days Being so restless that it is hard to sit still: 0 = Not at all Becoming easily annoyed or irritable: 0 = Not at all Feeling afraid as if something awful might happen: 0 = Not at all Total CHAPITO-7 score (0-4 normal; 5-9 mild; 10-14 moderate; 15-21 severe): 4 Source: Developed by Drs. Rey Deluca, Rosalind Graves, Matias Bardales and colleagues, with an educational martinez from [employer]. CHAPITO-7 Assessment Billing CHAPITO-7 Assessment Tool: CHAPITO-7 Assessment 54350 Review of Systems Narrative Review of Systems - General: Reports feeling more energized. 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 - Musculoskeletal: Reports chronic neck, back, and shoulder pain. 10-point ROS reviewed and negative except as noted in HPI Physical exam (Primary Care) Vital Signs: Last Vital Signs Temp 98.2 F 05/23/25 15:09 Pulse 76 05/23/25 15:09 Resp 16 05/23/25 15:09 BP 112/57 L 05/23/25 15:09 Pulse Ox 97 05/23/25 15:09 Oxygen Delivery Method Room Air 05/23/25 15:09 BMI result Body Mass Index 35.2 Tobacco/Smoking Status: Tobacco use Status Tobacco use date assessed 02/26/25 05/23/25 14:55 Patient Tobacco Use Status Never used Tobacco 05/23/25 15:08 e-Cigarette/Vaping Use Never Used 05/23/25 15:11 PHQ-9: PHQ-9 Score PHQ-9: Total score 4 05/23/25 14:55 Depression Screening Interpretation: Negative Thrive Assessment: Date of Thrive Assessment Date Thrive assessed 05/23/25 05/23/25 14:55 Currently or been in a relationship where the following occur: No concerns reported Narrative Physical Exam General: Well-appearing, in no acute distress. Vital signs: Within normal limits. HEENT: Normocephalic, atraumatic. PERRLA, EOMI. Conjunctiva clear, sclera anicteric. Oropharynx clear, mucous membranes moist. TMs intact bilaterally. Neck: Supple, no lymphadenopathy, no thyromegaly, no JVD or carotid bruits. Cardiovascular: RRR, normal S1/S2, no murmurs, rubs, or gallops. Peripheral pulses 2+ and symmetric. No edema. Respiratory: Lungs clear to auscultation bilaterally, no wheezes, rales, or rhonchi. Normal effort. breast exam deferred Abdomen: Soft, non-tender, non-distended. Normoactive bowel sounds. No hepatosplenomegaly, no masses. MSK: Full range of motion, no joint swelling or deformity. Normal gait. Skin: Warm, dry, intact. No rashes, lesions, or pallor. Neuro: Alert and oriented x3. Cranial nerves II-XII intact. Strength 5/5 throughout. Sensation intact. Reflexes 2+ symmetric. Normal coordination and gait. Psych: Appropriate mood and affect. Normal judgment and insight. Coding Level of Care Code Est Pt Level 3 (62245) Diagnoses Chronic lower back pain M54.50; G89.29 Menstrual irregularity N92.6 Polycystic ovary syndrome E28.2 Obesity, class 1 E66.811 Macromastia N62 Chronic back pain M54.9; G89.29 Additional Codes CHAPITO-7 Assessment Billing - CHAPITO-7 Assessment Tool: CHAPITO-7 Assessment 93181 ([id number]) PHQ-9 - 23639 - PHQ-9 Billing: Yes ([id number]) Assessment & Plan Assessment & Plan (1) Chronic lower back pain: Code(s): M54.50 - Low back pain, unspecified; G89.29 - Other chronic pain (2) Menstrual irregularity: Code(s): N92.6 - Irregular menstruation, unspecified Category: Medical (3) Polycystic ovary syndrome: Code(s): E28.2 - Polycystic ovarian syndrome Category: Medical (4) Obesity, class 1: Code(s): E66.811 - Obesity, class 1 Category: Medical (5) Macromastia: Code(s): N62 - Hypertrophy of breast Category: Medical (6) Chronic back pain: Code(s): M54.9 - Dorsalgia, unspecified; G89.29 - Other chronic pain Category: Medical Plan Consent Patient was informed and verbally consented to the use of an ambient scribe for clinic note documentation during this visit. Plan 1. 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 - A 90-day supply of spironolactone, control, and metformin will be refilled. 2. Macromastia - The patient is experiencing chronic neck, back, and shoulder pain, and difficulty with exercise due to large breast size. - A referral will be provided for a breast reduction consultation. - The patient will be given a printed list to find a participating surgeon. 3. Follow-Up - Recommended to follow up in three months. Discussion Notes I reviewed the patient's current medication regimen, and we discussed the positive effects it has had on menstrual cycle consistency and energy levels. We discussed the chronic neck, back, and shoulder pain and functional exercise limitations caused by the patient's macromastia. I provided a referral for a plastic surgery consultation for a potential breast reduction. I explained that the patient would receive a printed list to find a surgeon who accepts the patient's insurance. I refilled the patient's spironolactone, control, and metformin for three months, and we agreed on a follow-up visit in three months. Patient Instructions - Continue taking all your medications, including control, metformin, and spironolactone, as they are working well for you. - A 3-month supply of your medications has been refilled. - You will receive a printed referral. Please call the offices listed to find a plastic surgeon who accepts your insurance and schedule a consultation for a breast reduction. - Please schedule a follow-up appointment to see me in three months. Medical Decision Making The patient is a 19-year-old individual presenting for a medication management follow-up. 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 Therefore, 90-day refills for these medications were provided. The patient also presented with concerns related to macromastia (38DD), a condition present since adolescence, causing chronic neck, back, and shoulder pain. This condition causes functional impairment, interfering with exercise and requiring the patient to wear two sports bras for adequate support. Due to the chronic pain and functional limitations, a referral to plastic surgery for a breast reduction consultation is clinically indicated. Follow-up is scheduled for three months to continue monitoring. Total Time Statement 20 min Total time spent caring for the patient today includes pre-visit chart review, documentation, review of laboratory and diagnostic imaging results, medication reconciliation, medically necessary evaluation, counseling on diagnoses, care coordination, ordering appropriate tests and medications, review of tests performed by other providers, reporting test results to the patient, and communication with other healthcare providers. Orders: Referrals Plastic Surgery Referral G89.29 - Other chronic pain, M54.50 - Low back pain, unspecified, N62 - Hypertrophy of breast Medications: Refilled spironolactone 50 mg PO DAILY 90 tabs 0RF norgestimate-ethinyl estradiol 0.18/0.215/0.25 mg-0.035mg (28) 1 tab PO DAILY 84 tabs 3RF metformin 500 mg PO DAILY 90 tabs 2RF
[2025-05-23 15:09] VITALS: BP 112/57; PULSE 76; RESP 16; TEMP 36.8; O2SAT 97; BMI 35.2
--- OUTSIDE RECORDS SUMMARY | 2025-05-23 17:38 | XMS_ITS | Encounter Summary ---
Author Organization [facility] Address [address] [place] [address] Phone Care Team Providers Care Cement Cutter Name Role Phone Jena Parish MD Primary Care Provider [phone] Encounter Details Date Type Department Care Team ([facility] Contact Info) Description 11/07/2017 [facility]version [facility]counter [facility] [address] [address] Miguel Diez MD Social History Tobacco Use [...] on filedocumented in this encounter Care Teams Cement Cutter Relationship Specialty Start Date End Date Jena Parish MD [address] [place] [id number] PCP - General Pediatrics 07/20/22 11/05/24 documented as of this encounter
--- OUTSIDE RECORDS SUMMARY | 2025-05-23 17:38 | XMS_ITS | Clinical Summary ---
Author Organization [facility] Address [address] [place] [address] Phone Care Team Providers Care Contact Center Director Name Role Phone Unavailable Primary Care Provider [...] 02/27/2025 Erroneous Telephone Encounter [facility] [address] [address] [place] 02/27/2025 Telephone [facility] [address] [address] [place] Release of Records from [...] Father Alive Healthy age: 39 Maternal Grandfather [place] x2 a ge: 66 diagnosed with NONPSYCHOT [...] Completed 025, 10/05/2019 Procedures * Due to [place] [employer] law, this organization might not be sharing sensitive test results. Procedure Name Priority Date/Time Associated Diagnosis Comments CHLAMYDIA AND GONORRHEA, AMPLIFIED Routine 07/07/2024 3:48 PM EST Encounter for screening examination for sexually transmitted disease from Last 3 Months or Most Recently Relevant to Health Maintenance Results * Due to [place] [employer] law, this organization might not be sharing sensitive test results. * Chlamydia and Gonorrhoea, Amplified (07/07/2024 3:48 PM EST) C trach LAURYN Negative Negative [facility] N gonorrhoeae LAURYN Negative Negative [facility] Urine (Urine) 07/07/2024 3:4 8 PM EST 07/07/2024 Comment:Urine Narrative [facility] - 07/11/2024 12:05 AM EST Performed at: 01 - [facility] [place] [address], [address], [place], [place] [id number] Pull Up Hand: Mahin Kam MD, Phone: [phone] Yvette Kenny NP LAB MICROBIOLOGY - GENERAL O RDERABLES Final Result Performing Organization Address City/State/[facility] Co de Phone Number [facility] [address] [place] [address] from Last 3 Months or Most Recently Relevant to Health Maintenance Insurance [employer] OPEN ACCESS [facility] Address: [facility] [id number] [place] [phone] [employer]
== END 2025-05-23 15:21 | disposition home or self-care (01) ==
LOC: HO.HMCFMS 14:45
PROVIDERS: PCP Student in an Organized Health Care Education/Training Program; Visit Provider Student in an Organized Health Care Education/Training Program
DX: M54.50 Low back pain, unspecified (principal); G89.29 Other chronic pain; N92.6 Irregular menstruation, unspecified; E28.2 Polycystic ovarian syndrome; E66.811 Obesity, class 1; N62 Hypertrophy of breast; M54.9 Dorsalgia, unspecified

== ENCOUNTER → 2025-05-23 14:44 | Outpatient (BNVA) | payer OTHER, SELFPAY | PROVIDERS: PCP Student in an Organized Health Care Education/Training Program; Visit Provider Student in an Organized Health Care Education/Training Program | DX: M54.50 Low back pain, unspecified (principal); G89.29 Other chronic pain; N92.6 Irregular menstruation, unspecified; E28.2 Polycystic ovarian syndrome; E66.811 Obesity, class 1; N62 Hypertrophy of breast; Z13.31 Encounter for screening for depression; Z13.39 Encounter for screening examination for other mental health and behavioral disorders | CPT/HCPCS: 96127 ==